=== PATIENT | male | born 1935 | race Caucasian/White ===

== ENCOUNTER → 2016-12-02 | Outpatient (CLI) | payer MEDICARE, OTHER ==
[~2016-12-02] MED LIST: ADVAIR 250/5028 PUFF IN; ALLOPURINOL300 MG PO; GOLYTELY1 PDR PO
--- NOTE | 2016-12-02 14:12 | RADIOLOGY REPORT PS360 ---
CT CHEST W/ CONTRAST INDICATION: Malignant neoplasm of the colon follow-up, follow-up lung nodules COLON CA ORDERING PHYSICIAN: GELY LEMA PATIENT AGE: 80 years COMPARISON: None TECHNIQUE: Axial images are obtained with contrast. Sagittal and coronal reformatted images are reviewed as well. FINDINGS: No mediastinal or hilar mass or adenopathy evident. There are small pretracheal lymph nodes not significantly changed. No hilar adenopathy.. Minimal nodularity right lung base laterally which is in the plane of the major fissure unchanged. In addition, there is a 5 mm nodular density in the mid aspect of the right lung also in the plane of the major fissure unchanged On the left there is a small cluster of nodules in the posterior aspect of the apical posterior segment of the left upper lobe. These measure approximately 12 x 10 mm combined unchanged.. No new nodules evident. No effusions or infiltrates. There is mild prominence of the ascending aorta at 3.9 cm unchanged. Degenerative changes are present in the thoracic spine. No lytic or blastic lesions are evident IMPRESSION: 1. Overall stable CT appearance of the chest. No significant change in the cluster of small nodules in the left upper lobe and the fissural nodules on the right.
--- NOTE | 2016-12-02 14:16 | RADIOLOGY REPORT PS360 ---
CT ABD PELVIS W/ CONTRAST CLINICAL INDICATION: Follow-up malignant colon cancer COLON CA ORDERING PHYSICIAN: GELY LEMA PATIENT AGE: 80 years COMPARISON: 08/08/2015 TECHNIQUE: Axial images obtained with sagittal and coronal reformats. PROCEDURE: Oral Contrast: None IV Contrast: None . FINDINGS: The liver, spleen, adrenal glands, pancreas, and kidneys have an unremarkable CT appearance. No evidence of abdominal or pelvic mass. Prostate is slightly prominent at 5 cm. Unremarkable appearing urinary bladder. A moderate sized right inguinal hernia which contains a loop of sigmoid colon. No intestinal obstruction. Ileocolic anastomosis noted, status post prior hemicolectomy of the ascending colon and cecum. No intestinal obstruction or free air. There is also a small left inguinal hernia present containing fat. No bony lytic lesions evident. IMPRESSION: 1. No convincing evidence of metastatic disease. 2. Bilateral inguinal hernias. The right hernia does contain a loop of sigmoid colon. No intestinal obstruction.
== END ==
LOC: RAD 09:15
DX: C18.9 Malignant neoplasm of colon, unspecified (principal)
CPT/HCPCS: Q9967

== ENCOUNTER 2017-03-31 06:52 | Day surgery (SDC) | payer MEDICARE, OTHER ==
--- NOTE | 2017-03-31 08:25 | Operative Note ---
Endoscopy Report Date: 03/31/17 Preoperative diagnosis: Personal history of colon cancer and polyps Procedure Type of procedure: Total colonoscopy to ileocolic anastomosis with snare polypectomy and polypectomy by biopsy Indications: Patient is a 81-year-old white male referred by Dr. Painter for evaluation of bilateral inguinal hernias as well as for possible colonoscopy. 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 He has undergone subsequent colonoscopies by Dr. Mcneil. He sees oncology in [place] and underwent recent routine CT scan for surveillance. He states that he has undergone routine surveillance CT scan and this last one revealed findings of bilateral inguinal hernias. He has been relatively asymptomatic but states that he has some swelling in the RIGHT. No changes in bowel habits. He states that he is past due for follow-up colonoscopy. Patient was noted to have very large RIGHT inguinal hernia. CT scan reveals this to contain sigmoid colon. Plan was made to proceed initially with colonoscopy. Consent was obtained and patient was taken to same-day surgery endoscopy procedure room. Adequate intravenous sedation was achieved with titration of 7 mg Versed and 150 g fentanyl for the duration of the procedure. Variable stiffness Olympus colonoscope was inserted via the anus. It was advanced to the ileocolic anastomosis without difficulty. Colonoscope was withdrawn to the colon. In the distal transverse colon there was a small moderate polyp removed with hot snare. In the LEFT colon there were scattered small diverticuli. The distal sigmoid colon there was a diminutive polyp removed with cold biopsy forceps. Retroflexion within the rectum revealed internal hemorrhoids. Colonoscope was withdrawn. Findings 1. Polyp 2. Diverticulosis Follow-Up Follow-Up: Patient is to follow-up in the office. Likely plan repeat colonoscopy within 2 or 3 years pending the pathology. Would tentatively consider open repair of RIGHT inguinal hernia given its size and CT findings. Likely would merely plan for observation of small asymptomatic LEFT inguinal hernia. at [id number]
[2017-03-31 10:27] VITALS: BP 126/72
== END 2017-03-31 09:14 | disposition home or self-care (01) ==
LOC: SDC 06:52
PROVIDERS: Surgery
PROC: 0DBN8ZX Excision of Sigmoid Colon, Via Natural or Artificial Opening Endoscopic, Diagnostic (ICD-10-PCS; 2017-03-31)
PROC: 0DBL8ZX Excision of Transverse Colon, Via Natural or Artificial Opening Endoscopic, Diagnostic (ICD-10-PCS; principal; 2017-03-31 07:30)
DX: Z12.11 Encounter for screening for malignant neoplasm of colon (principal); Z86.010 Personal history of colon polyps; Z85.038 Personal history of other malignant neoplasm of large intestine; K63.5 Polyp of colon; K57.90 Diverticulosis of intestine, part unspecified, without perforation or abscess without bleeding; K64.8 Other hemorrhoids